=== PATIENT | male | born 1990 | race American Indian/Alaskan Native ===

== ENCOUNTER 2020-10-27 14:37 | Emergency (ER) | payer SELFPAY ==
[2020-10-27 15:22] LABS: Hematocrit 45.2 % (35.5-45.6); Hemoglobin 15.3 gm/dl (11.8-15.2); Mean Corpuscular HGB Conc 34 % (32-34); Mean Corpuscular Volume 91 fl (84-94); Red Cell Distribution Width 14.2 % (13.2-15.2)
[2020-10-27 15:30] LABS: Platelet Count 6 K/mm3 (140-440)
[2020-10-27 15:32] LABS: Partial Thromboplastin Time 28.8 Sec. (24.2-36.6)
[2020-10-27 15:38] LABS: Alanine Aminotransferase 12 units/L (7-56); Albumin 4.6 g/dL (3.9-5); BUN/Creatinine Ratio 12; Blood Urea Nitrogen 11 mg/dL (9-20); Hemolysis Index 12
[2020-10-27 16:35] VITALS: BP 122/88
--- NOTE | 2020-10-27 16:36 | Emergency Department Report ---
ED General Adult HPI - General Chief complaint: Medical Clearance Stated complaint: CHRONIC IMMUNE THROMBOCYTOPENIA Time Seen by Provider: 10/27/20 16:20 Source: patient Mode of arrival: Ambulatory Limitations: No Limitations - History of Present Illness Initial comments: 29-year-old male, history of ITP, status post splenectomy, presents to ED for evaluation. Patient believes his platelets are low. States he woke up this morning with petechiae on his shoulders and some intraoral bleeding. Patient denies any other bleeding. Patient states he sees Dr. Foley with [facility]. Patient had blood drawn on , 4 days ago, and his platelet count was 800,000. However, patient states he did not receive his monthly injection of Nplate. Patient states the same thing happened last month and he was had to be admitted to [facility] for platelet transfusion. Patient states last month was the first time he also received IVIG. Patient states he was initially diagnosed in 2018 with ITP. -: This morning Location: mouth, left, right, upper extremity Improves with: none Worsens with: none Associated Symptoms: denies: chest pain, nausea/vomiting, shortness of breath Treatments Prior to Arrival: none - Related Data Allergies Allergy/AdvReac Type Severity Reaction Status Date / Time coconut Allergy Hives Verified 10/27/20 14:46 ED Review of Systems ROS: Stated complaint: CHRONIC IMMUNE THROMBOCYTOPENIA Other details as noted in HPI Comment: All other systems reviewed and negative Constitutional: denies: fever ENT: other (Gingival bleeding reported) Respiratory: denies: shortness of breath Cardiovascular: denies: chest pain Gastrointestinal: denies: hematemesis, melena, hematochezia Skin: other (Petechiae reported) Hematological/Lymphatic: easy bleeding, other (Petechiae reported) ED Past Medical Hx - Past Medical History Previous Medical History?: Yes Additional medical history: Chronic Immune Thrombocytopenia - Surgical History Past Surgical History?: Yes Additional Surgical History: splenectomy, tonsilectomy - Social History Smoking Status: Never Smoker Substance Use Type: None ED Physical Exam - General Limitations: No Limitations General appearance: alert, in no apparent distress - Head Head exam: Present: atraumatic, normocephalic - Eye Eye exam: Present: normal appearance, EOMI - ENT ENT exam: Present: other (Small amount of blood present around the gums) - Neck Neck exam: Present: normal inspection - Respiratory Respiratory exam: Present: normal lung sounds bilaterally. Absent: respiratory distress - Cardiovascular Cardiovascular Exam: Present: regular rate, normal rhythm - GI/Abdominal GI/Abdominal exam: Present: soft. Absent: distended, tenderness - Extremities Exam Extremities exam: Present: normal inspection - Neurological Exam Neurological exam: Present: alert, oriented X3 - Psychiatric Psychiatric exam: Present: normal affect, normal mood - Skin Skin exam: Present: petechiae (Present on right shoulder) ED Course Vital Signs 10/27/20 10/27/20 10/27/20 14:40 16:28 16:34 Temperature 98.7 F Pulse Rate 78 67 Respiratory 20 15 16 Rate Blood Pressure 127/79 Blood Pressure 122/88 [Right] O2 Sat by Pulse 99 97 Oximetry - Reevaluation(s) Reevaluation #1: 10/27/20 16:52 Spoke with patient regarding conversation with hospitalist and need to transfer to an outside hospital. Patient states he would rather just drive to [facility] because he was there the last time. I spoke with patient and told him that I could not arrange transportation, however, patient states he will just leave and drive there. - Consultations Consultation #1: 10/27/20 16:[address] Colon, hospitalist, regarding patient's condition and need for admission. Unfortunately due to capability at this hospital he does not feel comfortable admitting patient here at [facility] due to patient's severe thrombocytopenia and our lack of hematology for consultation. ED Medical Decision Making - Lab Data Result diagrams: 10/27/20 14:59 10/27/20 14:59 - Medical Decision Making Spoke with hospitalist, recommends transfer to facility with hematology. Spoke with patient about transfer, however patient states he would rather leave now and drive to [facility], which is where he was treated last month. I told patient that I could call first however unable to give a timeframe acceptance of transfer. Patient would rather just leave now. AMA form signed. Critical care attestation.: If time is entered above; I have spent that time in minutes in the direct care of this critically ill patient, excluding procedure time. ED Disposition Clinical Impression: History of ITP, Thrombocytopenia Disposition: - LEFT AGAINST MED ADVICE Is pt being admited?: No Condition: Stable Referrals: BRYANNA FOLEY [Other] - 3-5 Days Time of Disposition: 16:49
== END 2020-10-27 17:08 | disposition left against medical advice (07) ==
LOC: ED 14:37
DX: D69.6 Thrombocytopenia, unspecified (principal); D69.3 Immune thrombocytopenic purpura; Z90.89 Acquired absence of other organs; Z98.890 Other specified postprocedural states; Z91.018 Allergy to other foods; Z79.899 Other long term (current) drug therapy
CPT/HCPCS: 36415; 80053; 85027; 85610; 85730; 86850; 86900; 86901; 99283